=== PATIENT | female | born 1950 | race Caucasian/White ===

== ENCOUNTER 2024-09-12 11:37 | Inpatient (IN) | payer MEDICARE ==
[~2024-09-12] VITALS: Ht 162.6 cm; Wt 76.1 kg
[2024-09-12] MEDS ORDERED: Ondansetron HCl 2 MG / ML 2ML Vial IV ONE ×2 (11:55→13:50)
[2024-09-12 12:16] LABS: Hemoglobin 15.6 g/dL (11.5-16.0); Mean Corpuscular HGB 31.5 pg (26.0-34.0); Mean Corpuscular HGB Conc 34.7 g/dL (31.5-36.5); Mean Corpuscular Volume 91 fL (80-100); Mean Platelet Volume 9.4 fL (9.1-12.4); Platelet Count 332 K/mm3 (150-400); RDW Coefficient Variation 13.1 % (11.7-14.2); RDW Standard Deviation 43.9 fL (35.1-46.3); Red Blood Cell Count 4.95 M/mm3 (3.80-5.20); White Blood Cell Count 21.18 K/mm3 (4.00-11.30)
[2024-09-12 12:30] LABS: BASOPHILS PERCENT MAN 0 % (0-2); Bilirubin, Total 0.5 mg/dL (0.1-1.0); Bun/Creatinine Ratio 29.9 (12.0-20.0); Calcium, Blood 9.4 mg/dL (8.5-10.1); Creatinine, Blood 0.5 mg/dL (0.40-1.00); EOSINOPHILS PERCENT MAN 0 % (0-6); LYMPHOCYTES ABSOLUTE MAN 1.48 K/mm3 (0.84-5.20); LYMPHOCYTES PERCENT MAN 7 % (21-46); MONOCYTES ABSOLUTE MAN 1.69 K/mm3 (0.16-1.47); MONOCYTES PERCENT MAN 8 % (4-13); Magnesium, Blood 1.8 mg/dL (1.6-2.4); Potassium, Blood 3.1 mmol/L (3.5-5.5); SEG NEUTROPHILS PERCENT MAN 85 % (41-73); TOTAL CELLS COUNTED 100
[2024-09-12] MEDS ORDERED: HYDROmorphone HCl/Pf 1MG SYR IV ONE ×2 (13:50→15:35)
[2024-09-12] MEDS ORDERED: NS 1,000 ML IV SCH ×3 (16:25→20:45)
[2024-09-12] MEDS ORDERED: FentaNYL Citrate 50 MCG/ML 2 ML Injection IV PRN (17:05)
[2024-09-12] MEDS ORDERED: FLU VACC TS2024-25(6MOS UP)/PF 45 MCG/0.5 ML SYRINGE IM SCH (17:10)
[2024-09-12] MEDS ORDERED: Ondansetron HCl 2 MG / ML 2ML Vial IV PRN (17:10)
[2024-09-12 17:42] LABS: Source, Urine Clean Catch
[2024-09-12 17:45] LABS: Appearance, Urine Clear (Clear); Bilirubin, Urine Neg (Neg); Blood, Urine 2+ (Neg); Color, Urine Yellow (P-Yellow); Glucose Qualitative, Urine Neg (Neg); Ketones, Urine 1+ (Neg); Leukocyte Esterase, Urine Neg (Neg); Nitrite, Urine Neg (Neg); Protein, Urine 1+ (Neg); Urobilinogen, Urine NORM (Normal)
[2024-09-12] MEDS ORDERED: Magnesium Sulf 2 GM/Water 50ML 50 ML IV STA (17:46)
[2024-09-12 17:48] LABS: International Normalized Ratio 1.11; Prothrombin Time Results 11.8 Sec (9.7-11.5)
[2024-09-12] MEDS ORDERED: Potassium Chloride 40 MEQ in NS 250 ML IV ONE (17:50)
[2024-09-12 17:54] LABS: Bacteria Few /hpf; Squamous Epithelial Cells Few /hpf (Few); White Blood Cells, Urine 0-2 /hpf (0-5)
[2024-09-12] MEDS ORDERED: Ampicillin Sod/Sulbactam Sod 3 GM in NS 100 ML IV SCH (18:00)
[2024-09-12 20:41] VITALS: BP 154/64
[2024-09-12 23:03] VITALS: BP 141/62
[2024-09-13] VITALS (12 sets, daily range): BP systolic 128–157; BP diastolic 61–76
[2024-09-13] MEDS ORDERED: FentaNYL Citrate 50 MCG/ML 2 ML Injection IV PRN (03:05)
--- NOTE | 2024-09-13 06:08 | NUR ---
NOC SUMMARY- PT ARRIVED TO ROOM IN SOME DISCOMFORT. PT REPORTS FEELING WEAK WITH SOME DIZZINESS. PT MEDICATED PER MAR WITH PAIN RELIEF. PT REPORTED FREQUENT PAINFUL EPISODES. PROVIDER CALLED AND INCREASED FREQUENCY OF PAIN MEDS. PT IS ON O2 VIA NC TO MAINTAINO2 >90%. PT ON CONTINUOUS BIOX AND TELE. NO EVENTS REPORTED BY GIS GEOGRAPHER. PT VOIDING VIA BSC WITH SBA. PT HAS BEEN NPO SINCE TN. CALL LIGHT IN REACH.
[2024-09-13 06:14] LABS: BASOPHILS ABSOLUTE AUTO 0.03 K/mm3 (0.00-0.23); BASOPHILS PERCENT AUTO 0 % (0-2); EOSINOPHILS PERCENT AUTO 0 % (0-6); Hematocrit 37.8 % (33.0-51.0); Hemoglobin 12.8 g/dL (11.5-16.0); IMMATURE GRAN ABSOLUTE AUTO 0.05 K/mm3 (0.00-0.10); IMMATURE GRAN PERCENT AUTO 0 % (0-1); LYMPHOCYTES PERCENT AUTO 13 % (21-46); MONOCYTES ABSOLUTE AUTO 1.15 K/mm3 (0.16-1.47); MONOCYTES PERCENT AUTO 8 % (4-13); Mean Corpuscular HGB 31.6 pg (26.0-34.0); Mean Corpuscular HGB Conc 33.9 g/dL (31.5-36.5); Mean Corpuscular Volume 93 fL (80-100); Mean Platelet Volume 9.7 fL (9.1-12.4); NEUTROPHILS ABSOLUTE AUTO 10.88 K/mm3 (1.96-9.15); NEUTROPHILS PERCENT AUTO 78 % (41-73); Platelet Count 229 K/mm3 (150-400); RDW Coefficient Variation 13.4 % (11.7-14.2); Red Blood Cell Count 4.05 M/mm3 (3.80-5.20); White Blood Cell Count 13.91 K/mm3 (4.00-11.30)
[2024-09-13 06:40] LABS: Albumin, Blood 2.8 g/dL (3.4-5.0); Albumin/Globulin Ratio 0.9 (0.8-1.8); Bilirubin, Total 0.7 mg/dL (0.1-1.0); Calcium, Blood 8.1 mg/dL (8.5-10.1); Creatinine, Blood 0.56 mg/dL (0.40-1.00); Globulin, Blood 3.2 g/dL (2.2-4.0); Potassium, Blood 3.4 mmol/L (3.5-5.5)
[2024-09-13] MEDS ORDERED: Lactated Ringer's 1,000 ML IV SCH (11:10)
--- NOTE | 2024-09-13 11:33 | NUR ---
[facility]
--- NOTE | 2024-09-13 11:57 | NUR ---
20G IN RAC FLUSHES WELL WITH BLOOD RETURN. PT TO UNIT VIA W/C. STAND BY ASSISTANCE FOR TRANSFERS. HELP WITH LEGS WHEN LIFTING. Pre-Op teaching done. Pt verbalizes understanding. History, Chart, Medications and Allergies reviewed before start of procedure. TELE BOX REMOVED AND PLACED IN PACU. TELE MONITOR NOTIFIED OF REMOVAL.
[2024-09-13] MEDS ORDERED: Bupivacaine 0.5% HCl 5 MG/ML 30MLVIAL ONE (12:19)
[2024-09-13] MEDS ORDERED: FentaNYL Citrate 50 MCG/ML 2 ML Injection ONE ×2 (12:29→12:53)
[2024-09-13] MEDS ORDERED: propofoL 20 ML IV ONE (12:29)
[2024-09-13] MEDS ORDERED: Labetalol HCL 5 MG/ML 4ML Injection (Single Dose) ONE (12:46)
--- NOTE | 2024-09-13 13:21 | NUR ---
09/13/24 1321 Rosalina Roque PT ON SCHEDULED ANTIBIOTIC. LAST DOSE GIVEN AT 1235 BY OUMAR HUGHES.
[2024-09-13] MEDS ORDERED: Dexamethasone Sod Phos 10 MG/ML 1ML VIAL ONE (13:23)
[2024-09-13] MEDS ORDERED: Ondansetron HCl 2 MG / ML 2ML Vial ONE (13:23)
[2024-09-13] MEDS ORDERED: Ketorolac Tromethamine 30mg Vial ONE (13:23)
[2024-09-13] MEDS ORDERED: Sugammadex Sodium 200 MG/2ML SDV (100 MG/ML) ONE (13:30)
--- NOTE | 2024-09-13 14:25 | NUR ---
POST OP RETURN TO SURGICAL UNIT ALERT & ORIENTED, PLEASANT. REPORTS FEELING MUCH BETTER. ABD SOFT w/ LAP SITES x 3. NO DRNG NOTED. LUNGS CLEAR SLIGHTLY DIM IN BASES. TELE IN PLACE. DENIES N/V SO CLEAR LQs GIVEN. SPOUSE AT SIDE.
[2024-09-14 00:34] VITALS: BP 131/58
--- NOTE | 2024-09-14 04:12 | NUR ---
NOC SUMMARY- PT PAIN MANAGED WELL. PT HAS BEEN RESTING COMFORTABLY. PT HAS BEEN GETTING UP TO VOID. PT TOLERATING PO FLUIDS. NO TELE EVENTS REPORTED. LAP SITES INTACT AND CLEAN.
[2024-09-14 04:20] VITALS: BP 142/70
[2024-09-14 05:42] LABS: BASOPHILS ABSOLUTE AUTO 0.02 K/mm3 (0.00-0.23); BASOPHILS PERCENT AUTO 0 % (0-2); EOSINOPHILS PERCENT AUTO 0 % (0-6); Hemoglobin 12.5 g/dL (11.5-16.0); IMMATURE GRAN ABSOLUTE AUTO 0.07 K/mm3 (0.00-0.10); IMMATURE GRAN PERCENT AUTO 0 % (0-1); LYMPHOCYTES ABSOLUTE AUTO 1.39 K/mm3 (0.84-5.20); LYMPHOCYTES PERCENT AUTO 9 % (21-46); MONOCYTES ABSOLUTE AUTO 1.33 K/mm3 (0.16-1.47); MONOCYTES PERCENT AUTO 8 % (4-13); Mean Corpuscular HGB 31.9 pg (26.0-34.0); Mean Corpuscular HGB Conc 33.8 g/dL (31.5-36.5); Mean Corpuscular Volume 94 fL (80-100); Mean Platelet Volume 10.1 fL (9.1-12.4); NEUTROPHILS ABSOLUTE AUTO 13.39 K/mm3 (1.96-9.15); NEUTROPHILS PERCENT AUTO 83 % (41-73); Platelet Count 235 K/mm3 (150-400); RDW Coefficient Variation 13.5 % (11.7-14.2); RDW Standard Deviation 46.9 fL (35.1-46.3); Red Blood Cell Count 3.92 M/mm3 (3.80-5.20)
[2024-09-14 06:17] LABS: Bun/Creatinine Ratio 17.4 (12.0-20.0); Calcium, Blood 8.4 mg/dL (8.5-10.1); Creatinine, Blood 0.46 mg/dL (0.40-1.00); Potassium, Blood 3.5 mmol/L (3.5-5.5)
[2024-09-14 07:37] VITALS: BP 145/70
[2024-09-14] MEDS ORDERED: HYDROcodone 5-APAP 325 TAB PO PRN (08:30)
[2024-09-14 14:49] VITALS: BP 152/67
--- NOTE | 2024-09-14 15:55 | NUR ---
1L NC REMOVED. ROOM AIR TRIAL = 88% ON RA. 2L APPLIED. WILL CONTINUE TO ENCOURAGE TCDB & WEAN O2.
--- NOTE | 2024-09-14 18:49 | NUR ---
SHIFT SUMMARY HAS BEEN FEELING VERY TIRED & EXHAUSTED TODAY. WITH MUCH ENCOURAGEMENT, AGREED TO AMBULATE TO BATHROOM VS BSC FOR VOIDS & DID 1 WALK IN HALLWAY. TRANSISTIONED TO NORCO & NO LONGER USING IV FENT AFTER INCREASED TO 2 NORCO. ENCOURAGING TCDB & PLAN TO WEAN O2.
[2024-09-14 20:05] VITALS: BP 156/77
--- NOTE | 2024-09-15 04:52 | NUR ---
NOC SUMMARY- NO NEW ISSUES. PAIN MANAGED WELL. PT HAS BEEN SLEEPING SOUNDLY THROUGHOUT SHIFT. PT AMBULATORY TO RESTROOM. CALL LIGHT IN REACH.
[2024-09-15 05:38] VITALS: BP 171/83
[2024-09-15 05:50] LABS: BASOPHILS ABSOLUTE AUTO 0.03 K/mm3 (0.00-0.23); BASOPHILS PERCENT AUTO 0 % (0-2); EOSINOPHILS ABSOLUTE AUTO 0.12 K/mm3 (0.00-0.68); EOSINOPHILS PERCENT AUTO 1 % (0-6); Hematocrit 36.5 % (33.0-51.0); Hemoglobin 12.2 g/dL (11.5-16.0); IMMATURE GRAN ABSOLUTE AUTO 0.05 K/mm3 (0.00-0.10); IMMATURE GRAN PERCENT AUTO 0 % (0-1); LYMPHOCYTES ABSOLUTE AUTO 2.04 K/mm3 (0.84-5.20); LYMPHOCYTES PERCENT AUTO 15 % (21-46); MONOCYTES ABSOLUTE AUTO 1.06 K/mm3 (0.16-1.47); MONOCYTES PERCENT AUTO 8 % (4-13); Mean Corpuscular HGB 31.7 pg (26.0-34.0); Mean Corpuscular HGB Conc 33.4 g/dL (31.5-36.5); Mean Corpuscular Volume 95 fL (80-100); Mean Platelet Volume 9.6 fL (9.1-12.4); NEUTROPHILS ABSOLUTE AUTO 10.19 K/mm3 (1.96-9.15); NEUTROPHILS PERCENT AUTO 76 % (41-73); Platelet Count 232 K/mm3 (150-400); RDW Coefficient Variation 13.5 % (11.7-14.2); RDW Standard Deviation 47.1 fL (35.1-46.3); Red Blood Cell Count 3.85 M/mm3 (3.80-5.20); White Blood Cell Count 13.49 K/mm3 (4.00-11.30)
[2024-09-15 06:31] LABS: Albumin, Blood 2.4 g/dL (3.4-5.0); Albumin/Globulin Ratio 0.7 (0.8-1.8); Bilirubin, Total 0.6 mg/dL (0.1-1.0); Bun/Creatinine Ratio 15.4 (12.0-20.0); Calcium, Blood 8.3 mg/dL (8.5-10.1); Creatinine, Blood 0.52 mg/dL (0.40-1.00); Globulin, Blood 3.6 g/dL (2.2-4.0); Potassium, Blood 3.2 mmol/L (3.5-5.5)
[2024-09-15 07:20] VITALS: BP 162/80
[2024-09-15] MEDS ORDERED: ONDA4ODT MM (11:42)
[2024-09-15] MEDS ORDERED: Norco 5-325 Ta1 EACH PO (11:42)
--- NOTE | 2024-09-15 12:35 | NUR ---
DISCHARGE PT FEELS READY FOR DC. EATING, DRINKING, VOIDING, & PASSING GAS. PAIN WELL CONTROLLED. Rx SENT w/ PT & CALLIE CALLED TO [facility]. ESCORTED OUT VIA WC.
== END 2024-09-15 12:35 | disposition home or self-care (01) | DRG 854 ==
LOC: ER 11:37 → SURS 17:03
PROVIDERS: Family Medicine; Physician Assistant; Surgery; ADMIT Internal Medicine
PROC: 3E03329 Introduction of Other Anti-infective into Peripheral Vein, Percutaneous Approach (ICD-10-PCS; 2024-09-12)
PROC: 0FT44ZZ Resection of Gallbladder, Percutaneous Endoscopic Approach (ICD-10-PCS; principal; 2024-09-13 12:00)
DX: A41.9 Sepsis, unspecified organism (principal); K80.00 Calculus of gallbladder with acute cholecystitis without obstruction; E87.6 Hypokalemia; E83.42 Hypomagnesemia; I10 Essential (primary) hypertension; F41.9 Anxiety disorder, unspecified; E78.00 Pure hypercholesterolemia, unspecified; K21.9 Gastro-esophageal reflux disease without esophagitis; Z98.890 Other specified postprocedural states; Z90.710 Acquired absence of both cervix and uterus; Z88.5 Allergy status to narcotic agent; Z79.899 Other long term (current) drug therapy; Z28.21 Immunization not carried out because of patient refusal
CPT/HCPCS: 36415; 74177; 80048; 80053; 81001; 83690; 83735; 83880; 85025; 85610; 88304; 93005; 93010; 96361; 96365-59; 96366; 96375; 96376; 99285-25; A9270; G0378; J0295; J1100; J1171; J1885; J2405; J2704; J3010; J3475; J3480; J7030; J7050; J7120; Q9967